=== PATIENT | female | born 1945 | race Caucasian/White ===

== ENCOUNTER → 2019-11-10 | Outpatient (CLI) | payer MEDICARE | END | disposition home or self-care (01) | LOC: CFH 14:40 | PROVIDERS: ATTEND Thoracic Surgery (Cardiothoracic Vascular Surgery) | DX: R07.9 Chest pain, unspecified (principal); R07.2 Precordial pain; G89.11 Acute pain due to trauma | CPT/HCPCS: 71250 ==

== ENCOUNTER → 2019-11-11 | Outpatient (CLI) | payer MEDICARE ==
[~2019-11-11] MED LIST: GADOTERATE 10 MMOL/20 ML VIAL ONE
== END | disposition home or self-care (01) ==
LOC: CFH 08:23
PROVIDERS: ATTEND Family Medicine
DX: R92.8 Other abnormal and inconclusive findings on diagnostic imaging of breast (principal); Z98.82 Breast implant status
CPT/HCPCS: 77049; A9575; C8937; C8908

== ENCOUNTER 2019-11-15 03:37 | Inpatient (IN) | payer MEDICARE ==
[2019-11-14 15:09] LABS: BASOPHILS # (AUTO) 0.04 x10^3/uL (0-0.1); BASOPHILS % (AUTO) 1 % (0-1); EOSINOPHILS # (AUTO) 0.17 x10^3/uL (0-0.4); EOSINOPHILS % (AUTO) 2 % (1-7); LYMPHOCYTES # (AUTO) 2.44 x10^3/uL (1-3.4); LYMPHOCYTES % (AUTO) 32 % (22-44); MD NO; MEAN CORPUSCULAR HEMOGLOBIN 28.7 pg (27.0-34.8); MEAN PLATELET VOLUME 7.4 fL (7.4-10.4); MONOCYTES % (AUTO) 7 % (2-9); NEUTROPHILS # (AUTO) 4.45 x10^3/uL (1.8-6.8); NEUTROPHILS % (AUTO) 59 % (42-75); PLATELET COUNT 334 x10^3/uL (130-400); RED BLOOD COUNT 4.45 x10^6/uL (3.82-5.3); RED CELL DISTRIBUTION WIDTH 14.1 % (9.6-15.2)
[2019-11-14 15:16] LABS: INTERNATIONAL NORMALIZED RATIO 0.99 (0.93-1.1); PROTHROMBIN TIME 10.2 Seconds (9.6-11.5)
[2019-11-14 15:20] LABS: ALANINE AMINOTRANSFERASE 21 U/L (12-78); ALBUMIN 3.6 g/dL (3.4-5.0); ANION GAP 7 mmol/L (5-15); CALCIUM 9.6 mg/dL (8.5-10.1); CHLORIDE 106 mmol/L (98-107); CREATININE 1.42 mg/dL (0.55-1.02)
[2019-11-14 15:22] LABS: ALKALINE PHOSPHATASE 91 U/L (45-117); BILIRUBIN,TOTAL 0.3 mg/dL (0.2-1.0); TOTAL PROTEIN 8.1 g/dL (6.4-8.2)
[2019-11-14 15:42] LABS: MICROSCOPIC AUTO
[~2019-11-15] VITALS: Ht 157.5 cm; Wt 62.5 kg
[2019-11-15 04:03] VITALS: BP_SYST 138; BP_SYST 157; BP_DIAS 74; BP_DIAS 76
[2019-11-15] MEDS ORDERED: CHLORHEXIDINE 15 ML UDC MM SCH (04:30)
[2019-11-15] MEDS ORDERED: INSULIN LISPRO 100 UNITS/ML, PEN SQ-INSULIN SCH (04:30)
[2019-11-15] MEDS ORDERED: DO NOT GIVE MC SCH (04:30)
[2019-11-15] MEDS ORDERED: ACETAMINOPHEN 325 MG TABLET PO PRN (04:30)
[2019-11-15] MEDS ORDERED: FENTANYL PF 250 MCG/5ML ONE ×5 (07:01→10:41)
[2019-11-15] MEDS ORDERED: MIDAZOLAM 10MG/2 ML ONE (07:01)
[2019-11-15] MEDS ORDERED: ALBUMIN HUMAN 5% 500 ML IV PRN (07:30)
[2019-11-15] MEDS ORDERED: PHENYLEPHRINE 50 MG in SODIUM CHLORIDE 0.9% 245 ML IV PRN ×2 (07:30→10:00)
[2019-11-15] MEDS ORDERED: REGULAR INSULIN 100 UNITS in SODIUM CHLORIDE 0.9% 99 ML IV PRN ×2 (07:30→07:41)
[2019-11-15] MEDS ORDERED: POTASSIUM CHLORIDE 80 MEQ, SODIUM BICARBONATE 8.4% 10 MEQ, MAGNESIUM SULFATE 0.5 GM, LI... IV PRN (07:30)
[2019-11-15] MEDS ORDERED: DEXMEDETOMIDINE 200 MCG in SODIUM CHLORIDE 0.9% 48 ML IV PRN ×2 (07:30→10:00)
[2019-11-15] MEDS ORDERED: EPINEPHRINE 5 MG in SODIUM CHLORIDE 0.9% 245 ML IV PRN ×2 (07:30→10:00)
[2019-11-15] MEDS ORDERED: MANNITOL PMX 20% 500 ML IVPB PRN (07:30)
[2019-11-15] MEDS ORDERED: VANCOMYCIN 1,000 MG in SODIUM CHLORIDE 0.9% 100 ML IV PRN (07:30)
[2019-11-15] MEDS ORDERED: SODIUM CHLORIDE 0.9% 1,000 ML IV PRN (07:41)
[2019-11-15] MEDS ORDERED: MANNITOL 0.25 GM/ML, 50ML ONE (07:56)
[2019-11-15] MEDS ORDERED: LACTATED RINGERS 1,000 ML IV PRN (08:00)
[2019-11-15] MEDS ORDERED: INSULIN REGULAR 100 UNITS/ML, 3ML VIAL IVPush PRN (08:00)
[2019-11-15] MEDS ORDERED: DEXTROSE 4 GM TAB.CHEW PO PRN (08:00)
[2019-11-15] MEDS ORDERED: CEFUROXIME 1.5 GM in SODIUM CHLORIDE 0.9% 50 ML IVPB SCH (08:00)
[2019-11-15] MEDS ORDERED: DEXTROSE 50%, 50ML SYRINGE IVPush PRN (08:00)
[2019-11-15] MEDS: KSCALE TO 4.5 IV SCH ×3 (08:00→20:00)
[2019-11-15] MEDS ORDERED: GLUCAGON 1 MG IM PRN (08:00)
[2019-11-15] MEDS: SODIUM CHLORIDE FLUSH 10ML SYR IVF SCH ×2 (08:43→22:00)
[2019-11-15] MEDS: MUPIROCIN OINT 2%, 22GM NAS SCH ×2 (09:00→22:00)
[2019-11-15] MEDS ORDERED: SODIUM CHLORIDE FLUSH 10ML SYR IVF SCH (09:00)
[2019-11-15] MEDS ORDERED: BISACODYL 5 MG EC TABLET PO PRN (09:00)
[2019-11-15] MEDS: DOCUSATE 100 MG CAPSULE PO SCH ×2 (09:00→22:00)
[2019-11-15] MEDS ORDERED: BISACODYL 10 MG SUPP PR PRN (09:00)
[2019-11-15] MEDS ORDERED: MUPIROCIN OINT 2%, 22GM TP SCH (09:00)
[2019-11-15] MEDS ORDERED: PROPOFOL 10 MG/ML, 20ML ONE (09:22)
[2019-11-15] MEDS ORDERED: ROCURONIUM 10MG/ML,5ML ONE ×2 (09:22→09:23)
[2019-11-15] MEDS ORDERED: PROTAMINE SULFATE 10 MG/ML, 25ML ONE (09:22)
[2019-11-15] MEDS ORDERED: VASOPRESSIN 20 UNIT in SODIUM CHLORIDE 0.9% 99 ML IV PRN (10:00)
[2019-11-15] MEDS ORDERED: MAGNESIUM SULFATE 1 GM in SODIUM CHLORIDE 0.9% 100 ML IVPB SCH (10:00)
[2019-11-15] MEDS ORDERED: DOBUTAMINE 250 MG in SODIUM CHLORIDE 0.9% 230 ML IV PRN (10:00)
[2019-11-15] MEDS ORDERED: ONDANSETRON 2MG/ML, 2ML IVPush PRN (10:00)
[2019-11-15] MEDS ORDERED: MIDAZOLAM 1 MG/ML, 5ML IVPush PRN (10:00)
[2019-11-15] MEDS ORDERED: FENTANYL PF 100 MCG/2ML IVPush PRN (10:00)
[2019-11-15] MEDS ORDERED: PROCHLORPERAZINE 5 MG/ML, 2ML IVPush PRN (10:00)
[2019-11-15] MEDS ORDERED: SODIUM BICARB 8.4%, 50ML SYRINGE IV PRN (10:00)
[2019-11-15] MEDS ORDERED: ACETAMINOPHEN 650 MG SUPP PR PRN (10:00)
[2019-11-15] MEDS ORDERED: morphine SULFATE 10 MG/ML, 1ML IVPush PRN (10:00)
[2019-11-15] MEDS ORDERED: NITROGLYCERIN/D5W PMX 250 ML IV PRN (10:00)
[2019-11-15] MEDS: INSULIN LISPRO 100 UNITS/ML, PEN SQ-INSULIN SCH ×3 (11:00→21:57)
[2019-11-15] MEDS ORDERED: LIDOCAINE-MPF 2% ,5ML ONE (12:08)
[2019-11-15] MEDS ORDERED: SODIUM BICARBONATE 1 MEQ/ML, 50ML VIAL ONE (12:08)
[2019-11-15] MEDS ORDERED: methylPREDNISolone SOD SUCC 125 MG/2 ML ONE (12:09)
[2019-11-15] MEDS ORDERED: ALBUMIN HUMAN 25% 50 ML ONE (12:09)
[2019-11-15] MEDS ORDERED: HEPARIN 1,000 UNITS/ML, 30ML ONE (12:09)
[2019-11-15 12:10] LABS: GLUCOSE BY BLOOD GAS ANALYZER 123 mg/dL (70-110); HEMOGLOBIN BY BLOOD GAS ANALYZ 11.9 g/dL (14.0-18.0); POTASSIUM BY BLOOD GAS ANALYZR 4.2 mmol/L (3.6-5.5)
[2019-11-15] MEDS ORDERED: CALCIUM CHLORIDE 10%, 10ML SYR IVPush ONE (12:14)
[2019-11-15 12:22] LABS: INTERNATIONAL NORMALIZED RATIO 1.25 (0.93-1.1); PROTHROMBIN TIME 12.9 Seconds (9.6-11.5)
[2019-11-15] MEDS ORDERED: POTASSIUM CHLORIDE PMX 100 ML IV ONE (18:30)
[2019-11-15] MEDS ORDERED: ALBUMIN HUMAN 5% 500 ML IV STA (18:39)
[2019-11-15] MEDS: HYDROcodone/APAP 5/325 TABLET PO PRN (22:28)
[2019-11-16] MEDS: KSCALE TO 4.5 IV SCH (02:00)
[2019-11-16] MEDS: HYDROcodone/APAP 5/325 TABLET PO PRN ×5 (02:00→20:48)
[2019-11-16 02:55] LABS: MEAN CORPUSCULAR HEMOGLOBIN 28.9 pg (27.0-34.8); MEAN CORPUSCULAR HGB CONC 32.6 g/dL (32.4-35.8); MEAN PLATELET VOLUME 7.6 fL (7.4-10.4); PLATELET COUNT 156 x10^3/uL (130-400); RED BLOOD COUNT 3.82 x10^6/uL (3.82-5.3); RED CELL DISTRIBUTION WIDTH 14.5 % (9.6-15.2)
[2019-11-16] MEDS ORDERED: AMIODARONE 450 MG in DEXTROSE 5% 241 ML IV PRN (03:00)
[2019-11-16 03:04] LABS: ALBUMIN 3.4 g/dL (3.4-5.0); ANION GAP 10 mmol/L (5-15); CALCIUM 9.6 mg/dL (8.5-10.1); CHLORIDE 110 mmol/L (98-107)
[2019-11-16 03:22] LABS: INTERNATIONAL NORMALIZED RATIO 1.08 (0.93-1.1); PROTHROMBIN TIME 11.1 Seconds (9.6-11.5)
[2019-11-16] MEDS ORDERED: FILTER 0.22 MICRON IV PRN (03:30)
[2019-11-16 03:33] LABS: BASOPHILS # (AUTO) 0.01 x10^3/uL (0-0.1); BASOPHILS % (AUTO) 0 % (0-1); EOSINOPHILS % (AUTO) 0 % (1-7); LYMPHOCYTES # (AUTO) 0.49 x10^3/uL (1-3.4); LYMPHOCYTES % (AUTO) 3 % (22-44); MD SCAN; MONOCYTES # (AUTO) 1.19 x10^3/uL (0.2-0.8); MONOCYTES % (AUTO) 7 % (2-9); NEUTROPHILS # (AUTO) 14.82 x10^3/uL (1.8-6.8); NEUTROPHILS % (AUTO) 90 % (42-75)
[2019-11-16 05:00] VITALS: BP 138/57
[2019-11-16] MEDS ORDERED: VANCOMYCIN 1,000 MG in SODIUM CHLORIDE 0.9% 100 ML IVPB ONE (07:00)
[2019-11-16] MEDS: INSULIN LISPRO 100 UNITS/ML, PEN SQ-INSULIN SCH ×4 (07:20→20:39)
[2019-11-16] MEDS ORDERED: MAGNESIUM HYDROXIDE 8%, 30ML UDC PO PRN (08:30)
[2019-11-16] MEDS: FUROSEMIDE 40 MG/4 ML IV SCH (10:23)
[2019-11-16] MEDS: AMLODIPINE 2.5 MG TABLET PO SCH (10:23)
[2019-11-16] MEDS: DOCUSATE 100 MG CAPSULE PO SCH ×2 (10:24→20:48)
[2019-11-16] MEDS: ASPIRIN 81 MG TABLET EC PO SCH (10:24)
[2019-11-16] MEDS: MUPIROCIN OINT 2%, 22GM NAS SCH ×2 (13:02→20:48)
[2019-11-16] MEDS: CHLORHEXIDINE 15 ML UDC MM SCH ×2 (13:04→20:48)
[2019-11-16] MEDS: OXYcodone IR 5MG TABLET PO PRN (13:27)
[2019-11-16 15:50] VITALS: BP 146/80
[2019-11-16 18:44] VITALS: BP 139/77
[2019-11-16] MEDS: LOVASTATIN 40 MG TABLET PO SCH (20:48)
[2019-11-16] MEDS: SODIUM CHLORIDE FLUSH 10ML SYR IVF SCH (20:48)
[2019-11-17 00:30] VITALS: BP 130/78
[2019-11-17] MEDS: HYDROcodone/APAP 5/325 TABLET PO PRN (04:11)
[2019-11-17 04:34] LABS: MEAN CORPUSCULAR HEMOGLOBIN 28.6 pg (27.0-34.8); MEAN CORPUSCULAR HGB CONC 32.4 g/dL (32.4-35.8); MEAN PLATELET VOLUME 7.4 fL (7.4-10.4); PLATELET COUNT 152 x10^3/uL (130-400); RED BLOOD COUNT 3.87 x10^6/uL (3.82-5.3); RED CELL DISTRIBUTION WIDTH 14.8 % (9.6-15.2)
[2019-11-17 04:42] LABS: INTERNATIONAL NORMALIZED RATIO 1.04 (0.93-1.1); PROTHROMBIN TIME 10.7 Seconds (9.6-11.5)
[2019-11-17 04:45] LABS: ANION GAP 7 mmol/L (5-15); CALCIUM 8.4 mg/dL (8.5-10.1); CHLORIDE 103 mmol/L (98-107); CREATININE 1.36 mg/dL (0.55-1.02)
[2019-11-17 05:12] LABS: BASOPHILS # (AUTO) 0.02 x10^3/uL (0-0.1); BASOPHILS % (AUTO) 0 % (0-1); EOSINOPHILS % (AUTO) 0 % (1-7); LYMPHOCYTES # (AUTO) 0.91 x10^3/uL (1-3.4); LYMPHOCYTES % (AUTO) 5 % (22-44); MD SCAN; MONOCYTES # (AUTO) 0.89 x10^3/uL (0.2-0.8); MONOCYTES % (AUTO) 5 % (2-9); NEUTROPHILS # (AUTO) 17.55 x10^3/uL (1.8-6.8); NEUTROPHILS % (AUTO) 91 % (42-75)
[2019-11-17] MEDS: INSULIN LISPRO 100 UNITS/ML, PEN SQ-INSULIN SCH ×4 (07:00→21:40)
[2019-11-17 07:38] VITALS: BP 129/72
[2019-11-17] MEDS: CHLORHEXIDINE 15 ML UDC MM SCH ×2 (08:55→21:39)
[2019-11-17] MEDS: MUPIROCIN OINT 2%, 22GM NAS SCH ×2 (08:55→21:39)
[2019-11-17] MEDS: DOCUSATE 100 MG CAPSULE PO SCH ×2 (08:55→21:40)
[2019-11-17] MEDS: ASPIRIN 81 MG TABLET EC PO SCH (08:55)
[2019-11-17] MEDS: AMLODIPINE 2.5 MG TABLET PO SCH (08:55)
[2019-11-17] MEDS: SODIUM CHLORIDE FLUSH 10ML SYR IVF SCH ×2 (09:00→21:39)
[2019-11-17] MEDS: FUROSEMIDE 40 MG/4 ML IV SCH (09:04)
[2019-11-17] MEDS ORDERED: FUROSEMIDE 40 MG/4 ML IV ONE (12:00)
[2019-11-17 13:20] VITALS: BP 147/78
[2019-11-17] MEDS: HYDROcodone/APAP 10/325 MG TABLET PO PRN (14:35)
[2019-11-17] MEDS ORDERED: LIDOCAINE 1%, 10ML ONE (15:00)
[2019-11-17 18:54] VITALS: BP 146/81
[2019-11-17] MEDS: OXYcodone IR 5MG TABLET PO PRN (21:40)
[2019-11-17] MEDS: LOVASTATIN 40 MG TABLET PO SCH (21:40)
[2019-11-18 04:37] VITALS: BP 145/79
[2019-11-18] MEDS: HYDROcodone/APAP 10/325 MG TABLET PO PRN (05:10)
[2019-11-18 05:20] LABS: MEAN CORPUSCULAR HEMOGLOBIN 28.6 pg (27.0-34.8); MEAN CORPUSCULAR HGB CONC 32.4 g/dL (32.4-35.8); RED BLOOD COUNT 3.49 x10^6/uL (3.82-5.3); RED CELL DISTRIBUTION WIDTH 14.5 % (9.6-15.2)
[2019-11-18 05:23] LABS: ANION GAP 8 mmol/L (5-15); CALCIUM 8.2 mg/dL (8.5-10.1); CHLORIDE 100 mmol/L (98-107); CREATININE 1.11 mg/dL (0.55-1.02)
[2019-11-18 05:53] LABS: BASOPHILS # (AUTO) 0.01 x10^3/uL (0-0.1); BASOPHILS % (AUTO) 0 % (0-1); EOSINOPHILS # (AUTO) 0.01 x10^3/uL (0-0.4); EOSINOPHILS % (AUTO) 0 % (1-7); LYMPHOCYTES # (AUTO) 0.88 x10^3/uL (1-3.4); LYMPHOCYTES % (AUTO) 7 % (22-44); MD SCAN; MEAN PLATELET VOLUME 7.5 fL (7.4-10.4); MONOCYTES # (AUTO) 0.64 x10^3/uL (0.2-0.8); MONOCYTES % (AUTO) 5 % (2-9); NEUTROPHILS # (AUTO) 11.81 x10^3/uL (1.8-6.8); NEUTROPHILS % (AUTO) 89 % (42-75); PLATELET COUNT 120 x10^3/uL (130-400)
[2019-11-18] MEDS: INSULIN LISPRO 100 UNITS/ML, PEN SQ-INSULIN SCH ×4 (07:00→21:00)
[2019-11-18 09:00] VITALS: BP_SYST 101; BP_SYST 150; BP_DIAS 73; BP_DIAS 79
[2019-11-18] MEDS ORDERED: FUROSEMIDE 20 MG/2 ML IV ONE (09:00)
[2019-11-18] MEDS ORDERED: AMLODIPINE 5 MG TABLET PO SCH (09:00)
[2019-11-18] MEDS ORDERED: POTASSIUM CHLORIDE 20 MEQ TAB.ER.PRT PO ONE (09:00)
[2019-11-18] MEDS: ASPIRIN 81 MG TABLET EC PO SCH (09:18)
[2019-11-18] MEDS: METOPROLOL TARTRATE 25 MG TAB PO SCH ×2 (09:18→18:23)
[2019-11-18] MEDS: DOCUSATE 100 MG CAPSULE PO SCH ×2 (09:19→21:40)
[2019-11-18] MEDS: AMLODIPINE 2.5 MG TABLET PO SCH (09:19)
[2019-11-18] MEDS: MUPIROCIN OINT 2%, 22GM NAS SCH ×2 (09:19→21:40)
[2019-11-18] MEDS: SODIUM CHLORIDE FLUSH 10ML SYR IVF SCH ×2 (09:20→21:41)
[2019-11-18] MEDS: FUROSEMIDE 40 MG/4 ML IV SCH (09:20)
[2019-11-18 10:53] VITALS: BP 124/80
[2019-11-18] MEDS: ACETAMINOPHEN 325 MG TABLET PO PRN (12:41)
[2019-11-18 13:20] VITALS: BP 124/74
[2019-11-18 18:38] VITALS: BP 129/79
[2019-11-18] MEDS: OXYcodone IR 5MG TABLET PO PRN (21:40)
[2019-11-18] MEDS: LOVASTATIN 40 MG TABLET PO SCH (21:40)
[2019-11-18] MEDS ORDERED: MORPHINE SULFATE 4 MG/ML, 1ML IVPush ONE (23:00)
[2019-11-19 01:30] VITALS: BP 133/79
[2019-11-19 04:38] VITALS: BP 150/80
[2019-11-19] MEDS: ACETAMINOPHEN 325 MG TABLET PO PRN ×2 (05:04→18:10)
[2019-11-19] MEDS: METOPROLOL TARTRATE 25 MG TAB PO SCH ×2 (05:04→18:11)
[2019-11-19 05:17] LABS: BASOPHILS # (AUTO) 0.01 x10^3/uL (0-0.1); BASOPHILS % (AUTO) 0 % (0-1); EOSINOPHILS % (AUTO) 1 % (1-7); LYMPHOCYTES % (AUTO) 13 % (22-44); MD NO; MEAN CORPUSCULAR HEMOGLOBIN 28.9 pg (27.0-34.8); MEAN CORPUSCULAR HGB CONC 32.8 g/dL (32.4-35.8); MEAN PLATELET VOLUME 7.8 fL (7.4-10.4); MONOCYTES # (AUTO) 0.65 x10^3/uL (0.2-0.8); MONOCYTES % (AUTO) 7 % (2-9); NEUTROPHILS % (AUTO) 80 % (42-75); PLATELET COUNT 152 x10^3/uL (130-400); RED BLOOD COUNT 3.57 x10^6/uL (3.82-5.3)
[2019-11-19 05:37] LABS: ANION GAP 8 mmol/L (5-15); CALCIUM 8.5 mg/dL (8.5-10.1); CHLORIDE 101 mmol/L (98-107)
[2019-11-19 05:38] LABS: CREATININE 1.05 mg/dL (0.55-1.02)
[2019-11-19 07:13] VITALS: BP 139/83
[2019-11-19] MEDS ORDERED: POTASSIUM CHLORIDE 20 MEQ TAB.ER.PRT PO SCH (08:00)
[2019-11-19] MEDS: FUROSEMIDE 40 MG/4 ML IV SCH (08:28)
[2019-11-19] MEDS: MUPIROCIN OINT 2%, 22GM NAS SCH ×2 (08:28→21:12)
[2019-11-19] MEDS: SODIUM CHLORIDE FLUSH 10ML SYR IVF SCH ×2 (08:29→21:12)
[2019-11-19] MEDS: ASPIRIN 81 MG TABLET EC PO SCH (08:31)
[2019-11-19] MEDS: AMLODIPINE 2.5 MG TABLET PO SCH (08:31)
[2019-11-19] MEDS: DOCUSATE 100 MG CAPSULE PO SCH ×2 (08:31→21:12)
[2019-11-19] MEDS ORDERED: LOSARTAN 50MG TABLET PO SCH (10:30)
[2019-11-19] MEDS ORDERED: POTASSIUM CHLORIDE 20 MEQ TAB.ER.PRT PO ONE (10:30)
[2019-11-19 12:44] VITALS: BP 145/82
[2019-11-19 18:53] VITALS: BP 133/79
[2019-11-19] MEDS: LOVASTATIN 40 MG TABLET PO SCH (21:12)
[2019-11-19] MEDS: OXYcodone IR 5MG TABLET PO PRN (21:12)
[2019-11-19] MEDS: POTASSIUM CHLORIDE 20 MEQ TAB.ER.PRT PO SCH (21:12)
[2019-11-20 01:26] VITALS: BP 137/82
[2019-11-20] MEDS: ACETAMINOPHEN 325 MG TABLET PO PRN ×3 (05:21→14:49)
[2019-11-20] MEDS: METOPROLOL TARTRATE 25 MG TAB PO SCH ×2 (05:21→18:01)
[2019-11-20 05:25] VITALS: BP 148/84
[2019-11-20 05:52] LABS: BASOPHILS # (AUTO) 0.03 x10^3/uL (0-0.1); BASOPHILS % (AUTO) 0 % (0-1); EOSINOPHILS # (AUTO) 0.12 x10^3/uL (0-0.4); EOSINOPHILS % (AUTO) 2 % (1-7); LYMPHOCYTES # (AUTO) 1.13 x10^3/uL (1-3.4); LYMPHOCYTES % (AUTO) 16 % (22-44); MD NO; MEAN CORPUSCULAR HEMOGLOBIN 29.1 pg (27.0-34.8); MEAN CORPUSCULAR HGB CONC 32.9 g/dL (32.4-35.8); MEAN PLATELET VOLUME 7.4 fL (7.4-10.4); MONOCYTES # (AUTO) 0.73 x10^3/uL (0.2-0.8); MONOCYTES % (AUTO) 10 % (2-9); NEUTROPHILS # (AUTO) 5.23 x10^3/uL (1.8-6.8); NEUTROPHILS % (AUTO) 72 % (42-75); PLATELET COUNT 176 x10^3/uL (130-400); RED BLOOD COUNT 3.44 x10^6/uL (3.82-5.3); RED CELL DISTRIBUTION WIDTH 14.4 % (9.6-15.2)
[2019-11-20 05:53] LABS: ANION GAP 6 mmol/L (5-15); CALCIUM 8.7 mg/dL (8.5-10.1); CHLORIDE 102 mmol/L (98-107)
[2019-11-20 05:56] LABS: CREATININE 0.99 mg/dL (0.55-1.02)
[2019-11-20 06:49] VITALS: BP 125/74
[2019-11-20] MEDS: FUROSEMIDE 40 MG/4 ML IV SCH (10:30)
[2019-11-20] MEDS: SODIUM CHLORIDE FLUSH 10ML SYR IVF SCH ×2 (10:30→20:38)
[2019-11-20] MEDS: POTASSIUM CHLORIDE 20 MEQ TAB.ER.PRT PO SCH ×2 (10:32→20:37)
[2019-11-20] MEDS: AMLODIPINE 2.5 MG TABLET PO SCH (10:33)
[2019-11-20] MEDS: DOCUSATE 100 MG CAPSULE PO SCH ×2 (10:33→20:38)
[2019-11-20] MEDS: ASPIRIN 81 MG TABLET EC PO SCH (10:33)
[2019-11-20] MEDS: LOSARTAN 100 MG TAB PO SCH (10:33)
[2019-11-20 12:19] VITALS: BP 143/85
[2019-11-20 17:58] VITALS: BP 124/80
[2019-11-20 18:39] VITALS: BP 130/77
[2019-11-20] MEDS: LOVASTATIN 40 MG TABLET PO SCH (20:37)
[2019-11-20] MEDS: OXYcodone IR 5MG TABLET PO PRN (20:37)
[2019-11-21 00:08] VITALS: BP 140/83
[2019-11-21] MEDS: OXYcodone IR 5MG TABLET PO PRN ×2 (03:47→10:24)
[2019-11-21 05:54] LABS: ANION GAP 7 mmol/L (5-15); CALCIUM 8.7 mg/dL (8.5-10.1); CHLORIDE 101 mmol/L (98-107); CREATININE 1.13 mg/dL (0.55-1.02)
[2019-11-21] MEDS: METOPROLOL TARTRATE 25 MG TAB PO SCH (06:25)
[2019-11-21 06:32] VITALS: BP 126/73
[2019-11-21] MEDS: AMLODIPINE 2.5 MG TABLET PO SCH (08:42)
[2019-11-21] MEDS: ASPIRIN 81 MG TABLET EC PO SCH (08:42)
[2019-11-21] MEDS: FUROSEMIDE 40 MG/4 ML IV SCH (08:42)
[2019-11-21] MEDS: POTASSIUM CHLORIDE 20 MEQ TAB.ER.PRT PO SCH (08:42)
[2019-11-21] MEDS: LOSARTAN 100 MG TAB PO SCH (08:42)
[2019-11-21] MEDS: SODIUM CHLORIDE FLUSH 10ML SYR IVF SCH (08:43)
[2019-11-21] MEDS: DOCUSATE 100 MG CAPSULE PO SCH (08:43)
[2019-11-21 13:48] VITALS: BP 132/85
[2019-11-21] MEDS ORDERED: POTA20TA6 PO (15:24)
[2019-11-21] MEDS ORDERED: LOSA100T2 PO (15:24)
[2019-11-21] MEDS ORDERED: HYDR-3237 PO (15:24)
[2019-11-21] MEDS ORDERED: LOVA40TA2 PO (15:24)
[2019-11-21] MEDS ORDERED: AMLO2.5T5 PO (15:24)
[2019-11-21] MEDS ORDERED: FURO-93 PO (15:24)
[2019-11-21] MEDS ORDERED: METO25TA35 PO (15:24)
[2019-11-21] MEDS ORDERED: ASPI81TA45 PO (15:24)
== END 2019-11-21 17:20 | disposition home health service (06) | DRG 219 ==
LOC: 5SO 03:37 → CSU 07:49 → 5SO 11-16 15:19
PROVIDERS: ADMIT Thoracic Surgery (Cardiothoracic Vascular Surgery); ATTEND Thoracic Surgery (Cardiothoracic Vascular Surgery)
PROC: B24BZZ4 Ultrasonography of Heart with Aorta, Transesophageal (ICD-10-PCS; 2019-11-15)
PROC: 5A1221Z Performance of Cardiac Output, Continuous (ICD-10-PCS; 2019-11-15)
PROC: 30233N1 Transfusion of Nonautologous Red Blood Cells into Peripheral Vein, Percutaneous Approach (ICD-10-PCS; 2019-11-15)
PROC: 30233R1 Transfusion of Nonautologous Platelets into Peripheral Vein, Percutaneous Approach (ICD-10-PCS; 2019-11-15)
PROC: 5A2204Z Restoration of Cardiac Rhythm, Single (ICD-10-PCS; 2019-11-15)
PROC: 02S00ZZ Reposition Coronary Artery, One Artery, Open Approach (ICD-10-PCS; 2019-11-15)
PROC: 02RF08Z Replacement of Aortic Valve with Zooplastic Tissue, Open Approach (ICD-10-PCS; principal; 2019-11-15 07:30)
PROC: 0W993ZZ Drainage of Right Pleural Cavity, Percutaneous Approach (ICD-10-PCS; 2019-11-17)
DX: I35.1 Nonrheumatic aortic (valve) insufficiency (principal); N17.0 Acute kidney failure with tubular necrosis; I13.0 Hypertensive heart and chronic kidney disease with heart failure and stage 1 through stage 4 chronic kidney disease, or unspecified chronic kidney disease; J98.11 Atelectasis; J90 Pleural effusion, not elsewhere classified; I71.2 Thoracic aortic aneurysm, without rupture; E78.5 Hyperlipidemia, unspecified; E87.6 Hypokalemia; I45.4 Nonspecific intraventricular block; I50.9 Heart failure, unspecified; N18.9 Chronic kidney disease, unspecified
CPT/HCPCS: 32555; 36415; 36600; 71045; 71046; 80048; 80053; 81001; 82040; 82330; 82800; 82803; 82810; 82947; 82962; 83036; 83735; 84132; 84295; 85014; 85018; 85025; 85049; 85347; 85610; 85730; 86850; 86900; 86920; 86923; 87081; 88304; 93005; 93312; 93320; 93325; 93880; 94002; 94150; C1768; G0378; J0171; J1644; J1815; J1940; J2250; J2405; J2704; J2720; J3010; J3370; J3475; J3480; J7060; P9045; P9047; C1751; C1760; C1762; J0282; J2150; J2370; J2930; J7050; J7120; P9016; P9035

== ENCOUNTER → 2020-01-30 | Outpatient (CLI) | payer MEDICARE ==
[~2020-01-30] MED LIST changes: +AMLO2.5T5 PO; +ASPI81TA45 PO; +FURO-93 PO; -GADOTERATE 10 MMOL/20 ML VIAL ONE; +HYDR-3237 PO; +LOSA100T2 PO; +LOVA40TA2 PO; +METO25TA35 PO; +OMEP-110 PO; +POTA20TA6 PO; +PRED50TA PO
== END | disposition home or self-care (01) ==
LOC: CFH 13:06
PROVIDERS: ATTEND Surgery
DX: N63.20 Unspecified lump in the left breast, unspecified quadrant (principal)
CPT/HCPCS: 76642; 77066; G0279

== ENCOUNTER 2020-02-13 12:11 | Outpatient (CLI) | payer MEDICARE ==
[2020-02-13] MEDS ORDERED: SODIUM BICARBONATE 4.2%, 5ML ONE (13:47)
[2020-02-13] MEDS ORDERED: LIDOCAINE 1%, 20ML ONE (13:47)
== END 2020-02-13 23:59 | disposition home or self-care (01) ==
LOC: CFH 12:11
PROVIDERS: ATTEND Surgery
DX: N63.25 Unspecified lump in the left breast, overlapping quadrants (principal); C50.812 Malignant neoplasm of overlapping sites of left female breast; C77.3 Secondary and unspecified malignant neoplasm of axilla and upper limb lymph nodes; Z17.0 Estrogen receptor positive status [ER+]
CPT/HCPCS: 19083; 38505; 76942; 88305; 88341; 88342; 88360; 77065

== ENCOUNTER 2020-02-24 12:11 | Emergency (ER) | payer MEDICARE ==
[~2020-02-24] VITALS: Ht 154.9 cm; Wt 55.0 kg
--- NOTE | 2020-02-24 12:25 | NUR ---
PATIENT BIB [facility] WITH CHIEF C/O ABD PAIN X1 WEEK. PER EMS PAIN IS DIFFUSE, INTERMITTENT AND WORSE UPON PALPATION. PATIENT HAD HEART SURGERY 12/15/2019 TO FIX A BICUSPID VALVE. PER EMS PATIENT WAS DIAGNOSED WITH LEFT BREAST CA LAST WEEK AND AT THAT TIME WAS TOLD SHE HAD BLOOD IN HER STOOL. 20 GAUGE IV STARTED EN ROUTE IN R-WRIST, NO MEDICATIONS GIVEN. VITALS STABLE EN ROUTE PER EMS. PATIENT REPORTS N/V/D, LAST BM THIS MORNING. NADN, VSS, WARM BLANKET PROVIDED, CALL LIGHT WITHIN REACH.
[2020-02-24] MEDS ORDERED: OMEP-110 PO (12:31)
--- NOTE | 2020-02-24 13:18 | NUR ---
[facility] [employer] AT BEDSIDE.
[2020-02-24 13:31] LABS: BASOPHILS % (AUTO) 1 % (0-1); EOSINOPHILS % (AUTO) 2 % (1-7); LYMPHOCYTES % (AUTO) 21 % (22-44); MEAN CORPUSCULAR HEMOGLOBIN 26.3 pg (27.0-34.8); MEAN CORPUSCULAR HGB CONC 32.8 g/dL (32.4-35.8); MEAN PLATELET VOLUME 7.4 fL (7.4-10.4); MONOCYTES % (AUTO) 8 % (2-9); NEUTROPHILS % (AUTO) 68 % (42-75); PLATELET COUNT 317 x10^3/uL (130-400); RED BLOOD COUNT 4.24 x10^6/uL (3.82-5.3); RED CELL DISTRIBUTION WIDTH 15.4 % (9.6-15.2)
--- NOTE | 2020-02-24 13:33 | NUR ---
PATIENT AMBULATED TO BATHROOM AND BACK TO [facility] WITH ASSISTANCE OF THIS RN. URINE SAMPLE COLLECTED AND WALKED TO LAB.
[2020-02-24 13:41] LABS: ALANINE AMINOTRANSFERASE 23 U/L (12-78); ALBUMIN 3.2 g/dL (3.4-5.0); ANION GAP 5 mmol/L (5-15); CALCIUM 8.9 mg/dL (8.5-10.1); CHLORIDE 109 mmol/L (98-107); CREATININE 1.73 mg/dL (0.55-1.02)
[2020-02-24 13:44] LABS: ALKALINE PHOSPHATASE 67 U/L (45-117); BILIRUBIN,TOTAL 0.2 mg/dL (0.2-1.0); MD NO; TOTAL PROTEIN 6.6 g/dL (6.4-8.2)
[2020-02-24 13:53] LABS: MICROSCOPIC AUTO
[2020-02-24 14:02] LABS: TROPONIN I < 0.015 ng/mL (0.000-0.045)
[2020-02-24] MEDS ORDERED: LORazepam 2 MG/ML, 1ML ONE (14:15)
--- NOTE | 2020-02-24 14:16 | NUR ---
PT NOT READY FOR CT AT 14:15. NEED PAIN MEDS
[2020-02-24] MEDS ORDERED: LORazepam 2 MG/ML, 1ML IVPush ONE (14:30)
[2020-02-24] MEDS ORDERED: SODIUM CHLORIDE FLUSH 10ML SYR IVF ONE (14:30)
--- NOTE | 2020-02-24 14:33 | NUR ---
PATIENT FEELING BETTER AFTER ATIVAN, STATES SHE IS READY TO GO FOR HER CT SCAN NOW. Addendum: 02/24/[address] NOTIFIED PATIENT IS READY.
[2020-02-24] MEDS ORDERED: CEFTRIAXONE PMX 1GM/50ML 50 ML IV ONE (15:00)
[2020-02-24] MEDS ORDERED: SODIUM CHLORIDE 0.9% 1,000ML IVBOLUS ONE (15:00)
[2020-02-24] MEDS ORDERED: CEFTRIAXONE PMX 1GM/50ML 50 ML ONE (15:04)
--- NOTE | 2020-02-24 15:07 | NUR ---
SPOKE WITH PATIENT ABOUT PCN ALLERGY, PATIENT STATES SHE DOES NOT REMEMBER HER REACTION SHE WAS A KID AND HAD A LOT OF "PENICILLIN." VERIFIED ABX WITH PHARMACIST, ARIELA. OKAY TO GIVE.
[2020-02-24 16:45] VITALS: BP 129/69
--- NOTE | 2020-02-24 17:10 | NUR ---
Patient and son given discharge instructions and prescription and they have confirmed that they understand the instructions. Patient stable and ambulatory with steady gait from ED with son to private vehicle.
== END 2020-02-24 17:11 | disposition home or self-care (01) ==
LOC: ED 13:01
DX: N30.00 Acute cystitis without hematuria (principal); N28.9 Disorder of kidney and ureter, unspecified; R11.2 Nausea with vomiting, unspecified; R19.7 Diarrhea, unspecified; I10 Essential (primary) hypertension; E78.5 Hyperlipidemia, unspecified; Z85.3 Personal history of malignant neoplasm of breast; Z95.4 Presence of other heart-valve replacement
CPT/HCPCS: 36415; 74176; 80053; 81001; 84484; 85025; 87077; 87086; 87186; 96365; 96375; 99285; J0696; J2060; J7030

== ENCOUNTER 2020-02-28 16:40 | Emergency (ER) | payer MEDICARE ==
[~2020-02-28] VITALS: Ht 160 cm; Wt 62.3 kg
--- NOTE | 2020-02-28 16:50 | NUR ---
ASSUMED CARE OF PATIENT. PATIENT BIB [facility] FIRE FROM HOME FOR BILATERAL LOWER ABD PAIN. PT REPORTS SHE IS ON ABX FOR A UTI. VS STABLE CALL LIGHT IN PLACE. WILL CONTINUE TO MONITOR. DR HAINES AT BEDSIDE.
--- NOTE | 2020-02-28 16:56 | NUR ---
LAB IN ROOM
[2020-02-28 17:03] LABS: BASOPHILS % (AUTO) 1 % (0-1); EOSINOPHILS % (AUTO) 1 % (1-7); LYMPHOCYTES % (AUTO) 19 % (22-44); MEAN CORPUSCULAR HEMOGLOBIN 26.5 pg (27.0-34.8); MEAN CORPUSCULAR HGB CONC 32.8 g/dL (32.4-35.8); MONOCYTES % (AUTO) 7 % (2-9); NEUTROPHILS % (AUTO) 72 % (42-75); PLATELET COUNT 325 x10^3/uL (130-400); RED BLOOD COUNT 4.17 x10^6/uL (3.82-5.3); RED CELL DISTRIBUTION WIDTH 15.6 % (9.6-15.2)
[2020-02-28 17:04] LABS: MD NO
[2020-02-28 17:15] LABS: ALANINE AMINOTRANSFERASE 28 U/L (12-78); ALBUMIN 3.4 g/dL (3.4-5.0); ANION GAP 6 mmol/L (5-15); CALCIUM 9.1 mg/dL (8.5-10.1); CHLORIDE 105 mmol/L (98-107); CREATININE 1.46 mg/dL (0.55-1.02)
[2020-02-28 17:17] LABS: ALKALINE PHOSPHATASE 69 U/L (45-117); BILIRUBIN,TOTAL 0.3 mg/dL (0.2-1.0)
--- NOTE | 2020-02-28 17:21 | NUR ---
PT AMBULATED TO BATHROOM. UA COLLECTED. VS STABLE. NO ACUTE DISTRESS NOTED. CALL LIGHT IN PLACE. WILL CONTINUE TO MONITOR.
--- NOTE | 2020-02-28 17:38 | NUR ---
PT REPORTS FEELING ANXIOUS. DR HAINES AWARE.
[2020-02-28] MEDS ORDERED: LORazepam 0.5MG TABLET ONE (17:40)
--- NOTE | 2020-02-28 17:42 | NUR ---
DR HAINES AT BEDSIDE
[2020-02-28 17:51] LABS: MICROSCOPIC AUTO
[2020-02-28] MEDS ORDERED: LOSARTAN (17:57)
[2020-02-28] MEDS ORDERED: LORazepam 1MG TABLET PO ONE (18:00)
--- NOTE | 2020-02-28 19:20 | NUR ---
PT RESTING IN ROOM. VS STABLE. NO ACUTE DISTRESS NOTED. CALL LIGHT IN PLACE. WILL CONTINUE TO MONITOR
--- NOTE | 2020-02-28 19:33 | NUR ---
DR HAINES HAS UPADATED PATIENT. PATIENT TO BE DISCHARGED HOME WITH SON. VS STABLE. NO ACUTE DISTRESS NOTED. WILL CONTINUE TO MONITOR.
--- NOTE | 2020-02-28 19:48 | NUR ---
PT HAS A RIDE HOME FROM SON.
[2020-02-28 19:54] VITALS: BP 124/76
--- NOTE | 2020-02-28 20:33 | NUR ---
PT DISCHARGED WITH SON. VS STABLE. PT IS A&OX4.
== END 2020-02-28 20:34 | disposition home or self-care (01) ==
LOC: ED 18:33
DX: R10.31 Right lower quadrant pain (principal); R10.32 Left lower quadrant pain; F41.1 Generalized anxiety disorder; I10 Essential (primary) hypertension; R19.7 Diarrhea, unspecified
CPT/HCPCS: 36415; 80053; 81001; 83690; 85025; 99285

== ENCOUNTER 2020-03-01 14:37 | Emergency (ER) | payer MEDICARE ==
[~2020-03-01] VITALS: Ht 154.9 cm; Wt 57.6 kg
[~2020-03-01 14:37] MED LIST changes: +LOSARTAN
--- NOTE | 2020-03-01 15:10 | NUR ---
PT BIB SON VIA POV FOR GLF. PT HAS LACERATION & SWELLING TO R EYE. PT IN [facility] ROCKING BACK AND FORTH, PER SON PT "IS ANXIOUS AND JONESING FOR ATIVAN". MONITORING IN PLACE, WILL CONTINUE TO MONITOR.
[2020-03-01] MEDS ORDERED: LIDOCAINE-MPF 1%, 2ML ONE (15:22)
[2020-03-01] MEDS ORDERED: LORazepam 1MG TABLET ONE (15:23)
[2020-03-01] MEDS ORDERED: LORazepam 1MG TABLET PO ONE (15:30)
[2020-03-01] MEDS ORDERED: LIDOCAINE-MPF 1%, 5ML INFIL ONE (15:30)
[2020-03-01 16:56] VITALS: BP 124/69
== END 2020-03-01 17:02 | disposition home or self-care (01) ==
LOC: ED 16:31
DX: S01.111A Laceration without foreign body of right eyelid and periocular area, initial encounter (principal); I10 Essential (primary) hypertension; E78.5 Hyperlipidemia, unspecified; Z88.0 Allergy status to penicillin; Z88.9 Allergy status to unspecified drugs, medicaments and biological substances; Z85.3 Personal history of malignant neoplasm of breast; X58.XXXA Exposure to other specified factors, initial encounter; Y93.89 Activity, other specified; Y92.89 Other specified places as the place of occurrence of the external cause; Y99.8 Other external cause status
CPT/HCPCS: 12013; 70450; 70486; 72125; 99285

== ENCOUNTER → 2020-03-16 | Outpatient (CLI) | payer MEDICARE | END | disposition home or self-care (01) | LOC: PETCFH 11:23 | PROVIDERS: ATTEND Internal Medicine Hematology & Oncology | DX: C50.812 Malignant neoplasm of overlapping sites of left female breast (principal) | CPT/HCPCS: 78306; A9503 ==

== ENCOUNTER 2020-07-09 06:12 | Observation (INO) | payer MEDICARE ==
[~2020-07-09] VITALS: Ht 156.2 cm; Wt 56.3 kg
[2020-07-09] MEDS ORDERED: LOSA25TA25 PO (06:57)
[2020-07-09] MEDS ORDERED: EPINEPHRINE 1 MG/ML, 1ML ONE (06:57)
[2020-07-09] MEDS ORDERED: ASPI81TA45 PO (06:57)
[2020-07-09] MEDS ORDERED: METO25TA35 PO (06:57)
[2020-07-09] MEDS ORDERED: BUPIVACAINE/PF 0.5% ONE (06:57)
[2020-07-09] MEDS ORDERED: FURO20TA3 PO (06:57)
[2020-07-09] MEDS ORDERED: ACET325T26 PO (06:57)
[2020-07-09] MEDS ORDERED: AMLO2.5T5 PO (06:57)
[2020-07-09] MEDS ORDERED: LOVA40TA2 PO (06:57)
[2020-07-09] MEDS ORDERED: ISOSULFAN BLUE 10 MG/ML, 5ML IV ONE (06:57)
[2020-07-09] MEDS ORDERED: POTA20TA14 PO (06:57)
[2020-07-09] MEDS ORDERED: OMEP-110 PO (06:57)
[2020-07-09] MEDS ORDERED: LIDOCAINE-MPF 1%, 2ML INFIL ONE (07:00)
[2020-07-09] MEDS ORDERED: LACTATED RINGERS 1,000 ML IV SCH (07:00)
[2020-07-09] MEDS ORDERED: CHLORHEXIDINE 15 ML UDC PO ONE (07:00)
[2020-07-09] MEDS ORDERED: FENTANYL PF 100 MCG/2ML ONE (07:10)
[2020-07-09] MEDS ORDERED: PHENYLEPHRINE 10 MG/ML ONE (07:23)
[2020-07-09] MEDS ORDERED: CEFAZOLIN 1,000 MG ONE (07:23)
[2020-07-09] MEDS ORDERED: SUCCINYLCHOLINE 20 MG/ML, 10ML ONE (07:23)
[2020-07-09] MEDS ORDERED: ROCURONIUM 10 MG/ML,10ML ONE (07:23)
[2020-07-09] MEDS ORDERED: ONDANSETRON 2MG/ML, 2ML ONE (07:23)
[2020-07-09] MEDS ORDERED: DEXAMETHASONE 4 MG/ML, 1ML ONE (07:23)
[2020-07-09] MEDS ORDERED: PROPOFOL 10 MG/ML, 20ML ONE (07:23)
[2020-07-09 07:27] LABS: ALANINE AMINOTRANSFERASE 25 U/L (12-78); ALBUMIN 3.8 g/dL (3.4-5.0); ANION GAP 5 mmol/L (5-15); CALCIUM 9.6 mg/dL (8.5-10.1); CHLORIDE 107 mmol/L (98-107); CREATININE 1.24 mg/dL (0.55-1.02)
[2020-07-09 07:30] LABS: ALKALINE PHOSPHATASE 92 U/L (45-117); BILIRUBIN,TOTAL 0.3 mg/dL (0.2-1.0); TOTAL PROTEIN 8.1 g/dL (6.4-8.2)
[2020-07-09] MEDS ORDERED: HYDROmorphone 1 MG/ML, 1ML INJ ONE (07:46)
[2020-07-09] MEDS ORDERED: PROMETHAZINE 25 MG/ML, 1ML IVPush PRN (08:00)
[2020-07-09] MEDS ORDERED: ONDANSETRON 2MG/ML, 2ML IVPush PRN ×2 (08:00→19:00)
[2020-07-09] MEDS ORDERED: HALOPERIDOL 5 MG/ML IV PRN (08:00)
[2020-07-09] MEDS ORDERED: EPHEDRINE 50 MG/ML, 1ML IVPush PRN (08:00)
[2020-07-09] MEDS ORDERED: HYDROmorphone 1 MG/ML, 1ML INJ IVPush PRN (08:00)
[2020-07-09] MEDS ORDERED: hydrALAzine 20 MG/ML, 1ML IV PRN (08:00)
[2020-07-09] MEDS ORDERED: LABETALOL 5MG/ML, 20ML IV PRN (08:00)
[2020-07-09] MEDS ORDERED: METOCLOPRAMIDE 5 MG/ML, 2ML IVPush PRN (08:00)
[2020-07-09] MEDS ORDERED: ACETAMINOPHEN 325 MG TABLET PO PRN ×2 (08:00→19:30)
[2020-07-09] MEDS ORDERED: METOPROLOL 1 MG/ML, 5ML IV PRN (08:00)
[2020-07-09] MEDS ORDERED: FENTANYL PF 100 MCG/2ML IV PRN (08:00)
[2020-07-09] MEDS ORDERED: DIAZEPAM 5 MG/ML, 2ML IVPush PRN (08:00)
[2020-07-09] MEDS ORDERED: OXYcodone 5 MG/5 ML ORAL.SOL UDC PO PRN (08:00)
[2020-07-09] MEDS ORDERED: DIPHENHYDRAMINE 50 MG/ML, 1ML IVPush PRN (08:00)
[2020-07-09] MEDS ORDERED: HYDR-2214 PO (08:18)
[2020-07-09] MEDS ORDERED: ACETAMINOPHEN 650 MG/20.3 ML UDC ONE (09:02)
[2020-07-09] MEDS ORDERED: OXYcodone 5 MG/5 ML ORAL.SOL UDC ONE (09:02)
[2020-07-09] MEDS ORDERED: MEPERIDINE/PF 25MG/ML,1ML ONE (09:13)
[2020-07-09] MEDS ORDERED: hydrALAzine 20 MG/ML, 1ML ONE (09:21)
[2020-07-09] MEDS ORDERED: MEPERIDINE/PF 25MG/0.5ML IVPush PRN (09:30)
[2020-07-09] MEDS ORDERED: HYDROcodone/APAP 5/325 TABLET PO PRN (19:00)
[2020-07-09 19:22] VITALS: BP 128/70
[2020-07-09] MEDS ORDERED: OMEPRAZOLE 20 MG CAPSULE.DR PO PRN (19:30)
[2020-07-09] MEDS ORDERED: LOVASTATIN 40 MG TABLET PO SCH (21:00)
[2020-07-09] MEDS ORDERED: METOPROLOL TARTRATE 25 MG TAB PO SCH (21:00)
[2020-07-09] MEDS: OMEPRAZOLE 20 MG CAPSULE.DR PO SCH (22:39)
[2020-07-09 23:04] VITALS: BP 119/63
[2020-07-10 03:03] VITALS: BP 136/79
[2020-07-10] MEDS: OMEPRAZOLE 20 MG CAPSULE.DR PO SCH (06:50)
[2020-07-10 07:43] VITALS: BP 126/71
[2020-07-10] MEDS ORDERED: POTASSIUM CHLORIDE 20 MEQ TAB.ER.PRT PO SCH (09:00)
[2020-07-10] MEDS ORDERED: ASPIRIN 81 MG TABLET EC PO SCH (09:00)
[2020-07-10] MEDS ORDERED: AMLODIPINE 2.5 MG TABLET PO SCH (09:00)
[2020-07-10] MEDS ORDERED: LOSARTAN 50MG TABLET PO SCH (09:00)
[2020-07-10] MEDS ORDERED: FUROSEMIDE 20 MG TABLET PO SCH (09:00)
[2020-07-10 12:41] VITALS: BP 121/72
[2020-07-10 15:55] VITALS: BP 119/68
== END 2020-07-10 16:28 | disposition home or self-care (01) ==
LOC: OUT 06:12 → EDSTATUS 07:30 → 3N 18:37 → OUT 18:37 → 4NE 18:40 → DCLOUNGE 07-10 16:02
PROVIDERS: ADMIT Surgery; ATTEND Surgery
DX: C50.912 Malignant neoplasm of unspecified site of left female breast (principal); L98.9 Disorder of the skin and subcutaneous tissue, unspecified; E78.5 Hyperlipidemia, unspecified; I12.9 Hypertensive chronic kidney disease with stage 1 through stage 4 chronic kidney disease, or unspecified chronic kidney disease; N18.9 Chronic kidney disease, unspecified; K21.9 Gastro-esophageal reflux disease without esophagitis; M81.0 Age-related osteoporosis without current pathological fracture; Z88.0 Allergy status to penicillin; Z87.891 Personal history of nicotine dependence; Z79.899 Other long term (current) drug therapy
CPT/HCPCS: 19307; 36415; 80053; 88305; 88307; 93005; C1729; G0378; J0171; J0330; J0360; J0690; J1100; J1170; J2175; J2370; J2405; J2704; J3010; J3490; J7120; S0020; 99214; G0463

== ENCOUNTER 2020-08-06 07:54 | Outpatient (CLI) | payer MEDICARE ==
[~2020-08-06 07:54] MED LIST changes: +ACET325T26 PO; +FURO20TA3 PO; +HYDR-2214 PO; +LOSA25TA25 PO; +POTA-143 PO; +POTA20TA14 PO; -POTA20TA6 PO
== END 2020-08-06 23:59 | disposition home or self-care (01) ==
LOC: ROC 07:54
PROVIDERS: ATTEND Radiology Radiation Oncology
DX: C50.112 Malignant neoplasm of central portion of left female breast (principal); M81.0 Age-related osteoporosis without current pathological fracture; I13.10 Hypertensive heart and chronic kidney disease without heart failure, with stage 1 through stage 4 chronic kidney disease, or unspecified chronic kidney disease; N18.9 Chronic kidney disease, unspecified; K21.9 Gastro-esophageal reflux disease without esophagitis; E78.5 Hyperlipidemia, unspecified; Z79.899 Other long term (current) drug therapy; Z87.891 Personal history of nicotine dependence
CPT/HCPCS: 99214; G0463

== ENCOUNTER → 2020-08-21 | Outpatient (CLI) | payer MEDICARE ==
[~2020-08-21] MED LIST changes: -POTA-143 PO; +POTA20TA6 PO
== END | disposition home or self-care (01) ==
LOC: CFH 10:57
PROVIDERS: ATTEND Internal Medicine Hematology & Oncology
DX: C50.812 Malignant neoplasm of overlapping sites of left female breast (principal); M81.0 Age-related osteoporosis without current pathological fracture
CPT/HCPCS: 77080

== ENCOUNTER 2020-10-25 10:22 | Outpatient (CLI) | payer MEDICARE ==
[~2020-10-25 10:22] MED LIST changes: +POTA-143 PO; -POTA20TA6 PO
== END 2020-10-25 23:59 | disposition home or self-care (01) ==
LOC: ROC 10:22
PROVIDERS: ATTEND Radiology Radiation Oncology
DX: C50.112 Malignant neoplasm of central portion of left female breast (principal); M81.0 Age-related osteoporosis without current pathological fracture; I12.9 Hypertensive chronic kidney disease with stage 1 through stage 4 chronic kidney disease, or unspecified chronic kidney disease; N18.9 Chronic kidney disease, unspecified; K21.9 Gastro-esophageal reflux disease without esophagitis; E78.5 Hyperlipidemia, unspecified; Z17.0 Estrogen receptor positive status [ER+]; Z79.899 Other long term (current) drug therapy; Z87.891 Personal history of nicotine dependence
CPT/HCPCS: G0463

== ENCOUNTER 2020-11-09 11:13 | Outpatient (CLI) | payer MEDICARE | END 2020-11-09 23:59 | disposition home or self-care (01) | LOC: ROC 11:13 | PROVIDERS: ATTEND Radiology Radiation Oncology | DX: Z08 Encounter for follow-up examination after completed treatment for malignant neoplasm (principal); Z85.3 Personal history of malignant neoplasm of breast; M81.0 Age-related osteoporosis without current pathological fracture; I12.9 Hypertensive chronic kidney disease with stage 1 through stage 4 chronic kidney disease, or unspecified chronic kidney disease; N18.9 Chronic kidney disease, unspecified; K21.9 Gastro-esophageal reflux disease without esophagitis; E78.5 Hyperlipidemia, unspecified; Z17.0 Estrogen receptor positive status [ER+]; Z79.899 Other long term (current) drug therapy; Z87.891 Personal history of nicotine dependence | CPT/HCPCS: G0463 ==